=== PATIENT | female | born 1975 | race Caucasian/White ===

== ENCOUNTER 2017-09-05 10:32 | Outpatient (CLI) | payer OTHER | END 2017-09-05 10:33 | disposition home or self-care (01) | LOC: BICMAMMO 10:32 | PROVIDERS: ATTEND Family Medicine | DX: Z12.31 Encounter for screening mammogram for malignant neoplasm of breast (principal); R92.1 Mammographic calcification found on diagnostic imaging of breast | CPT/HCPCS: 77063; 77067 ==

== ENCOUNTER 2018-09-11 08:33 | Outpatient (CLI) | payer OTHER | END 2018-09-11 08:34 | disposition home or self-care (01) | LOC: BICMAMMO 08:33 | PROVIDERS: ATTEND Family Medicine | DX: Z12.31 Encounter for screening mammogram for malignant neoplasm of breast (principal); R92.1 Mammographic calcification found on diagnostic imaging of breast | CPT/HCPCS: 77063; 77067 ==

== ENCOUNTER 2018-12-07 07:46 | Outpatient (CLI) | payer OTHER ==
--- NOTE | 2018-12-07 09:28 | MRI ---
MRI BRAIN NONCONTRAST: DATE: 12/07/2018 HISTORY: 43-year-old female with headache ("other complicated headache syndrome"), visual disturbance, and dagmar tigo FINDINGS: The ventricles are normal in size and configuration. There is a tiny hemosiderin stain a few millimet ers in size in a right anterolateral parietal gyrus. There is no other major intra-axial signal abnormality, restricted diffusion, midline shift or any other mass effect, recent intra-axial hemorrh age, or extra-axial fluid collection. There is no Chiari I malformation. IMPRESSION: 1. A tiny focus of remote hemorrhage involving subcortical white matter at a right parietal gyrus. Et iology is uncertain, but one possibility is tiny cavernous malformation. 2. Otherwise normal.
== END 2018-12-07 07:47 | disposition home or self-care (01) ==
LOC: SCSMRI 07:46
PROVIDERS: ATTEND Family Medicine
DX: G44.59 Other complicated headache syndrome (principal); H53.9 Unspecified visual disturbance; R42 Dizziness and giddiness
CPT/HCPCS: 70551

== ENCOUNTER 2019-06-18 13:28 | Outpatient (CLI) | payer OTHER ==
--- NOTE | 2019-06-18 15:08 | MRI ---
MRI BRAIN WITH AND WITHOUT CONTRAST: 06/18/2019 HISTORY: Cerebral hemorrhage. COMPARISON: Noncontrast enhanced brain MRI from 12/07/2018. TECHNIQUE: Multiplanar, multisequence MR imaging of the brain obtained with and without contrast. FINDINGS: There is a subcentimeter focus of blooming artifact within the posterolateral right parietal region, suggesting a small cavernoma, measuring 4 mm in transverse dimension, unchanged when compared to the prior study performed on 12/07/2018. The diffusion weighted imaging demonstrates no evidence for acute infarction. The axial gradient echo imaging appears otherwise unremarkable. There is no midline shift or mass effect. No ventricular enlargement is noted. The paranasal sinuses and mastoid air cells demonstrate normal signal intensity. No abnormal enhancement is noted within the posterior fossa/brainstem. No abnormal enhancement is identified within the supratentorial region on either side. 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 No acute findings. POS: [facility]
== END 2019-06-18 13:29 | disposition home or self-care (01) ==
LOC: TBSIIMAG 13:28
PROVIDERS: ATTEND Neurological Surgery
DX: I61.9 Nontraumatic intracerebral hemorrhage, unspecified (principal)
CPT/HCPCS: 70553

== ENCOUNTER 2019-09-17 09:50 | Outpatient (CLI) | payer OTHER ==
--- NOTE | 2019-09-17 11:12 | MMO ---
Bilateral MAMMO Bilat Screen [facility]. CLINICAL HISTORY: Patient is 44 years old and is seen for screening. The patient has no family history of breast cancer. The patient has no personal history of cancer. VIEWS: The views performed were: bilateral craniocaudal with tomosynthesis; bilateral mediolateral oblique with tomosynthesis; and bilateral exaggerated craniocaudal. FILMS COMPARED: The present examination has been compared to prior imaging studies performed at [facility] on 09/05/2017 and 09/11/2018, and at [facility] on 08/17/2016. This study has been interpreted with the assistance of computer-aided detection. MAMMOGRAM FINDINGS: The breasts are extremely dense, which may lower the sensitivity of mammography. There are no suspicious masses, suspicious calcifications, or new areas of architectural distortion. IMPRESSION: THERE IS NO MAMMOGRAPHIC EVIDENCE OF MALIGNANCY. A ROUTINE FOLLOW-UP MAMMOGRAM IN 1 YEAR IS RECOMMENDED. THE RESULTS OF THIS EXAM WERE SENT TO THE PATIENT. ACR BI-RADS Category 1 - Negative MAMMOGRAPHY NOTE: 1. A negative mammogram report should not delay a biopsy if a dominant of clinically suspicious mass is present. 2. Approximately 10% to 15% of breast cancers are not detected by mammography. 3. Adenosis and dense breasts may obscure an underlying neoplasm. Reported by: KEISHA SOLER MD Electonically Signed: [id number]
== END 2019-09-17 09:51 | disposition home or self-care (01) ==
LOC: BICMAMMO 09:50
PROVIDERS: ATTEND Family Medicine
DX: Z12.31 Encounter for screening mammogram for malignant neoplasm of breast (principal)
CPT/HCPCS: 77063; 77067

== ENCOUNTER 2020-04-22 07:46 | Outpatient (CLI) | payer OTHER ==
--- NOTE | 2020-04-22 08:15 | ULT ---
Sonogram abdomen complete HISTORY: Abdomen pain. FINDINGS: The gallbladder has a normal appearance without stone apparent. Common duct is 0.2 cm. Liver with a normal appearance. No mass or intrahepatic biliary dilatation. No free fluid. The spleen, kidneys, and visualized portions of abdominal aorta, IVC, and pancreas are unremarkable. IMPRESSION : No abnormalities.
== END 2020-04-22 07:47 | disposition home or self-care (01) ==
LOC: BICULT 07:46
PROVIDERS: ATTEND Family Medicine
DX: R10.84 Generalized abdominal pain (principal)
CPT/HCPCS: 93975

== ENCOUNTER 2020-09-16 09:31 | Outpatient (CLI) | payer OTHER ==
--- NOTE | 2020-09-16 10:29 | MMO ---
Bilateral MAMMO Bilat Screen [facility]. CLINICAL HISTORY: Patient is 45 years old and is seen for screening. The patient has no family history of breast cancer. The patient has no personal history of cancer. VIEWS: The views performed were: bilateral craniocaudal with tomosynthesis; bilateral mediolateral oblique with tomosynthesis; and bilateral exaggerated craniocaudal. FILMS COMPARED: The present examination has been compared to prior imaging studies performed at [facility] on 09/05/2017, 09/11/2018 and 09/17/2019, and at [facility] on 08/17/2016. This study has been interpreted with the assistance of computer-aided detection. MAMMOGRAM FINDINGS: The breasts are extremely dense, which may lower the sensitivity of mammography. There are no suspicious masses, suspicious calcifications, or new areas of architectural distortion. IMPRESSION: THERE IS NO MAMMOGRAPHIC EVIDENCE OF MALIGNANCY. A ROUTINE FOLLOW-UP MAMMOGRAM IN 1 YEAR IS RECOMMENDED. THE RESULTS OF THIS EXAM WERE SENT TO THE PATIENT. ACR BI-RADS Category 1 - Negative MAMMOGRAPHY NOTE: 1. A negative mammogram report should not delay a biopsy if a dominant of clinically suspicious mass is present. 2. Approximately 10% to 15% of breast cancers are not detected by mammography. 3. Adenosis and dense breasts may obscure an underlying neoplasm. Reported by: JAZMIN GOMES MD Electonically Signed: [id number]
== END 2020-09-16 09:32 | disposition home or self-care (01) ==
LOC: BICMAMMO 09:31
PROVIDERS: ATTEND Family Medicine
DX: Z12.31 Encounter for screening mammogram for malignant neoplasm of breast (principal)
CPT/HCPCS: 77063; 77067

== ENCOUNTER 2021-07-27 15:15 | Outpatient (CLI) | payer OTHER | END 2021-07-27 15:16 | disposition home or self-care (01) | LOC: SCSRAD 15:15 | PROVIDERS: ATTEND Internal Medicine Rheumatology | DX: M25.561 Pain in right knee (principal); M25.572 Pain in left ankle and joints of left foot; M79.89 Other specified soft tissue disorders | CPT/HCPCS: 73565 ==

== ENCOUNTER 2021-09-17 13:46 | Outpatient (CLI) | payer OTHER | END 2021-09-17 13:47 | disposition home or self-care (01) | LOC: BICMAMMO 13:46 | PROVIDERS: ATTEND Family Medicine | DX: Z12.31 Encounter for screening mammogram for malignant neoplasm of breast (principal) | CPT/HCPCS: 77063; 77067 ==

== ENCOUNTER 2025-05-23 14:04 | Outpatient (CLI) | payer BC | END 2025-05-23 14:05 | disposition home or self-care (01) | LOC: SCSBT 14:04 | PROVIDERS: ATTEND Student in an Organized Health Care Education/Training Program | DX: Z13.820 Encounter for screening for osteoporosis (principal); M85.89 Other specified disorders of bone density and structure, multiple sites | CPT/HCPCS: 77080 ==